=== PATIENT | female | born 1975 | race African-American/Black ===

== ENCOUNTER 2017-04-23 12:48 | Observation (INO) | payer OTHER, SELFPAY ==
[2017-04-23 13:53] LABS: Hematocrit 41.7 % (36.0-47.0); Mean Platelet Volume 8.3 fL (7.4-10.4); Red Blood Cell (RBC) Count 4.14 mill/uL (4.20-5.40); White Blood Cell (WBC) Count 9.8 thou/uL (4.8-10.8)
[2017-04-23 13:58] LABS: Prothrombin Time 19.5 SEC (12.0-14.7)
[2017-04-23 14:11] LABS: Anion Gap 11 mmol/L (10-20); BUN (Urea Nitrogen) 12 mg/dL (7.0-18.7); Calc. Creatinine Clearance 0 mL/min (70-130); Calcium 9.8 mg/dL (7.8-10.44); Carbon Dioxide 23 mmol/L (22-29); Chloride 110 mmol/L (98-107); Estimated GFR-MDRD 46; Magnesium 2.3 mg/dL (1.6-2.6)
[2017-04-23 14:12] LABS: Macrocytosis SLIGHT = 6-15 cells (100X) (0-5/hpf); Neutrophil 25 % (42-75); Reactive Lymphocytes 15 % (0-10); Schistocytes SLIGHT = 2-5 cells (100X) (0-1/hpf); Target Cells SLIGHT = 2-5 cells (100X) (0-1/hpf); Tear Drops SLIGHT = 2-5 cells (100X) (0-1/hpf)
[2017-04-23 14:17] LABS: Troponin I Less than 0.010 ng/mL (< 0.028)
--- NOTE | 2017-04-23 14:29 | RAD ---
CHEST ONE VIEW: History: Dyspnea. Comparison: 01-04-17 FINDINGS: Cardiac silhouette and pulmonary vasculature are unremarkable. Mediastinum is midline. Linear atelec tasis at the left base is stable. There is no confluent airspace consolidation or evidence of pneumo thorax. condenser operator leads overlie the chest. IMPRESSION: No active cardiopulmonary abnormalities are demonstrated. POS: [facility]
--- NOTE | 2017-04-23 15:22 | ULT ---
BILATERAL LOWER EXTREMITY VENOUS ULTRASOUND WITH DOPPLER: Date: 04/23/17 COMPARISON: 08/08/15. HISTORY: PREVIOUS DVT. TECHNIQUE: Pedraza scale, color flow, Doppler imaging, and spectral waveform analysis performed of the left and ri ght lower extremity deep venous system. FINDINGS: RIGHT LOWER EXTREMITY: There is compressibility, presence of flow, and augmentation in the common femoral vein. There is fl ow in the greater saphenous and profunda vein. There is lack of complete compressibility and complet e flow in the mid femoral vein. There is also partial compressibility in the distal femoral vein. Th e popliteal vein compresses completely and there is flow. There is flow in the posterior tibial vein . LEFT LOWER EXTREMITY: There is compressibility, presence of flow, and augmentation in the common femoral vein. There is fl ow in the greater saphenous vein and profunda vein. There is partial compressibility with some flow in the mid femoral vein and distal femoral vein. Popliteal vein compresses. There is flow. There is flow in the posterior tibial vein. IMPRESSION: Partial thrombus in the left and right lower extremity femoral veins (deep venous system). POS: [facility]
--- NOTE | 2017-04-23 15:25 | CT ---
CT PULMONARY ANGIOGRAM WITH IV CONTRAST AND 3D POSTPROCESSING: Date: 04/23/17 HISTORY: Shortness of breath, bilateral leg swelling, orthopnea, dyspnea on exertion, history of deep venous thrombosis bilaterally that occurred last year. FINDINGS: Comparison made with exam of 01/04/17. There is good contrast opacification of the pulmonary arterial vasculature without filling defects t o suggest pulmonary embolism. The thoracic aorta is well opacified without aneurysm or dissection. N o pleural or pericardial effusions are seen. There is subsegmental atelectatic change versus scarrin g in the lingula. This was also seen on the previous study. No pneumothoraces, focal areas of consol idation, or lung masses are identified. No acute osseous abnormalities are noted. Thymic remnant is again not seen. IMPRESSION: No CT evidence of pulmonary embolism. POS: [facility]
[2017-04-23] MEDS ORDERED: Warfarin Sodium 10 MG TAB PO SCH (15:45)
[2017-04-23] MEDS ORDERED: ISOVUE-370 76%-LOCM 1 ML ONE (16:29)
--- NOTE | 2017-04-23 16:48 | HP ---
DATE OF ADMISSION: 04/23/2017 PRIMARY CARE PHYSICIAN: [facility], Dr. Osorio. CHIEF COMPLAINT: Bilateral lower extremity swelling with exertional shortness of breath of 2 weeks' duration. HISTORY OF PRESENT ILLNESS: Patient is a 42-year-old female with chronic venous thromboembolism pre sented to the emergency room with above complaints. The patient was admitted in July of this year with DVT. She was started on anticoagulation and w as discharged home. She does not know why she gets DVT. She had hypercoagulable state in the past that has been negative. She was off anticoagulation in January and February. Two weeks ago, the patient was evaluated by her PCP for worsening bilateral lower extremity swelling . She was started on anticoagulation with warfarin 5 mg daily. Tomorrow, she was supposed to see a PCP for INR check. Over the last two weeks, patient has worsening swelling of bilateral lower extremities along with sh ortness of breath mainly on exertion. She denies any chest pain, palpitations, lightheadedness, diz ziness or syncope. Due to degenerative joint disease and bilateral lower extremity swelling, hernesto lucas has not been ambulating much. In the emergency room, she underwent venous Doppler that was consis tent with partial thrombus in the left and right lower extremity femoral veins. PAST MEDICAL HISTORY: 1. History of venous thromboembolism. 2. Chronic anemia. 3. Degenerative joint disease. PAST SURGICAL HISTORY: 1. Tubal ligation. 2. Splenectomy. 3. Multiple orthopedic surgeries including knee, ankle and left arm. ALLERGIES: No known drug allergies. CURRENT HOME MEDICATION: Warfarin 5 mg daily. SOCIAL HISTORY: She denies any smoking, alcohol or drug use. Currently lives at home with family. FAMILY HISTORY: Negative for hypercoagulable state or premature coronary artery disease. REVIEW OF SYSTEMS: The following complete review of systems was negative, unless otherwise mentione d in the HPI or below: Constitutional: Weight loss or gain, ability to conduct usual activities. Skin: Rash, itching. Eyes: Double vision, pain. ENT/Mouth: Nose bleeding, neck stiffness, pain, tenderness. Cardiovascular: Palpitations, dyspnea on exertion, orthopnea. Respiratory: Shortness of breath, wheezing, cough, hemoptysis, fever or night sweats. Gastrointestinal: Poor appetite, abdominal pain, heartburn, nausea, vomiting, constipation, or diar bertha. Genitourinary: Urgency, frequency, dysuria, nocturia. Musculoskeletal: Pain, swelling. Neurologic/Psychiatric: Anxiety, depression. Allergy/Immunologic: Skin rash, bleeding tendency. PHYSICAL EXAMINATION: VITAL SIGNS: Temperature 98.1 with respiration of 16, pulse rate of 93 with blood pressure of 127/8 6. GENERAL: A 42-year-old female in no significant respiratory distress, saturating 96% on room air. HEENT: Head; atraumatic, normocephalic. Sclerae anicteric. Moist mucous membranes. No oral lesio n. NECK: Supple, no JVD appreciated. No carotid bruit. LUNGS: Clear to auscultation bilaterally. No wheezing, rales or rhonchi. HEART: S1 and S2 present. Regular rate and rhythm. No murmur, rubs, or gallops appreciated. No p arasternal heaves or pulsation. ABDOMEN: Soft, nontender, bowel sounds present. EXTREMITIES: 2+ edema in bilateral lower extremities with mild calf tenderness on palpation. There was no erythema noted. NEUROLOGIC: Grossly nonfocal, moves all four extremities. PSYCHIATRY: Alert, awake, oriented x3. SKIN: Warm and dry. LYMPH NODES: No palpable lymph nodes in the neck and groin. LABORATORY DATA AND IMAGIN. CBC showed WBC 9.8 with hemoglobin 13, hematocrit 41.7, and platelet 275. 2. INR of 1.6. D-dimer was 0.82. 3. BNP was 11.7. 4. Troponin is negative. 5. BMP showed sodium 140, potassium 4, chloride 110, bicarbonate 23, BUN of 12, creatinine 1.51. C reatinine 4 months ago was 1.24. In July, it was 0.81. 6. CT angiogram of the chest by my review was negative for pulmonary embolism. There was no edema or infiltrate. Chest x-ray by my review was negative for infiltrate or edema. Bilateral lower extr emity Doppler as discussed above. 7. EKG by my review showed sinus rhythm with no significant ST-T wave changes. IMPRESSION AND PLAN: 1. Bilateral lower extremity deep venous thrombosis. The patient was started on anticoagulation 2 weeks ago at 5 mg warfarin daily. We will increase dose to 10 mg daily for now. We will educate he r on Coumadin diet. Pulmonary embolism has been ruled out. Thrombosis profile in the past has been negative. 2. Exertional shortness of breath of unclear etiology. The patient will benefit from a stress test as outpatient. 3. Acute kidney injury. The patient denies any nonsteroidal anti-inflammatory drug use. We will g ently hydrate her, since she received contrast bolus for the chest CT. We will repeat base met in a .m. 4. Degenerative joint disease. 5. Subtherapeutic INR. 6. Macrocytosis. 7. Plan of care was discussed with the patient. She stated understanding.
[2017-04-23] MEDS ORDERED: Eucerin (Mineral Oil/Petrolatum,White) 30 gm Jar TOP PRN (16:55)
[2017-04-23] MEDS ORDERED: Ondansetron HCl/PF 4 MG/2 ML Vial IVP PRN (16:55)
[2017-04-23] MEDS ORDERED: traMADol HCl 50 MG TAB PO PRN (16:55)
[2017-04-23] MEDS ORDERED: Milk Of Magnesia 30 ML UDCUP PO PRN (16:55)
[2017-04-23] MEDS ORDERED: Acetaminophen 325 MG TAB PO PRN (16:55)
[2017-04-23] MEDS ORDERED: Senokot 8.6 MG TAB PO PRN (16:55)
[2017-04-23] MEDS ORDERED: Nitroglycerin 0.4 MG TAB (25 Tab Bottle) PO PRN (16:55)
[2017-04-23] MEDS ORDERED: Ondansetron ODT 4 MG TAB PO PRN (16:55)
[2017-04-23] MEDS ORDERED: Polyethylene Glycol 3350 17 GM Packet PO PRN (16:55)
[2017-04-23] MEDS: Sodium Chloride 0.9% 1,000 ML IV SCH (17:15)
[2017-04-23 17:27] VITALS: BMI 34.2
[2017-04-23] MEDS: HYDROcodone/Acetaminophen 5/325 mg Tablet PO PRN (19:16)
[2017-04-24] MEDS: HYDROcodone/Acetaminophen 5/325 mg Tablet PO PRN ×2 (01:10→08:13)
[2017-04-24 04:54] LABS: Hematocrit 37.6 % (36.0-47.0)
[2017-04-24 05:09] LABS: Prothrombin Time 24.7 SEC (12.0-14.7)
[2017-04-24 05:19] LABS: Anion Gap 11 mmol/L (10-20); BUN (Urea Nitrogen) 12 mg/dL (7.0-18.7); BUN/Creatinine Ratio 11.01; Calc. Creatinine Clearance 92 mL/min (70-130); Calcium 8.8 mg/dL (7.8-10.44); Carbon Dioxide 19 mmol/L (22-29); Chloride 110 mmol/L (98-107); Estimated GFR-MDRD 67; Magnesium 1.9 mg/dL (1.6-2.6); Phosphorus 3.9 mg/dL (2.3-4.7)
[2017-04-24] MEDS: Sodium Chloride 0.9% 1,000 ML IV SCH (06:05)
[2017-04-24 08:02] VITALS: BP 103/69
[2017-04-24 08:20] VITALS: TEMP 98.7
--- NOTE | 2017-04-24 08:51 | DIS ---
TRANSFER OF CARE NOTE PRIMARY CARE PROVIDER: [facility] Jeff Reyna DATE OF ADMISSION: 04/23/2017 DATE OF DISCHARGE: 04/24/2017 DISCHARGE DISPOSITION: Home. FINAL DIAGNOSES: 1. Deep vein thrombosis, subtherapeutic INR. 2. Anemia, normocytic, normochromic. DISCHARGE MEDICATIONS: Coumadin 7.5 mg p.o. daily at 1700 hours, ferrous sulfate 325 mg p.o. b.i.d. , Protonix 40 mg a day. ALLERGIES: None. PENDING AT THE TIME OF DISCHARGE: Nothing. CODE STATUS: Full. HOSPITAL COURSE: The patient presented with leg swelling. She has chronic venous thrombosis. She had been on Coumadin for months. She was taken off in February. Two weeks ago, she was started back on 5 mg a day for deep vein thrombosis. When she presented in the emergency room, her PT/INR 19.5, 1.6. She was given an additional dose of Coumadin. This morning her PT/INR is 24.7/2.1. A CT adri o of the chest was done which revealed no evidence of pulmonary embolism. The patient is asymptomat ic this morning. Vital signs are within normal limits. Cardiorespiratory exam is normal. I have discussed discharge on increased dose of Coumadin. She is being discharged on Coumadin 7.5 a day instead of 5. She has been instructed to go to [facility] in 3 days for followup PT/INR. Nicolle sotelo is agreeable with that. CONSULTATIONS: No consultations. PROCEDURES: No procedures.
[2017-04-24] MEDS ORDERED: Warfarin Sodium 10 MG TAB PO SCH (17:00)
== END 2017-04-24 11:21 | disposition home or self-care (01) ==
LOC: ERS 12:48 → 2SW 15:45
PROVIDERS: ADMIT Internal Medicine; ATTEND Internal Medicine
DX: I82.503 Chronic embolism and thrombosis of unspecified deep veins of lower extremity, bilateral (principal); D64.9 Anemia, unspecified; M19.90 Unspecified osteoarthritis, unspecified site; N17.9 Acute kidney failure, unspecified; D75.89 Other specified diseases of blood and blood-forming organs; R06.02 Shortness of breath; Z79.01 Long term (current) use of anticoagulants; Z79.899 Other long term (current) drug therapy; Z98.51 Tubal ligation status; Z90.81 Acquired absence of spleen; Z98.890 Other specified postprocedural states
CPT/HCPCS: 36415; 71010; 71275; 80048; 80069; 82553; 82607; 82746; 83735; 83880; 84443; 84484; 85014; 85018; 85025; 85049; 85379; 85610; 93005; 93970; 94760; 96360; 96361; G0378

== ENCOUNTER 2017-08-11 11:44 | Outpatient (CLI) | payer SELFPAY | END 2017-08-11 11:45 | disposition home or self-care (01) | LOC: BICRAD 11:44 | PROVIDERS: ATTEND Internal Medicine | DX: Z02.71 Encounter for disability determination (principal); B20 Human immunodeficiency virus [HIV] disease; I82.409 Acute embolism and thrombosis of unspecified deep veins of unspecified lower extremity; I50.9 Heart failure, unspecified; G62.9 Polyneuropathy, unspecified; M47.896 Other spondylosis, lumbar region; M17.12 Unilateral primary osteoarthritis, left knee | CPT/HCPCS: 72100 ==

== ENCOUNTER 2018-01-09 15:44 | Inpatient (IN) | payer SELFPAY ==
[~2018-01-09 15:44] MED LIST: ISOVUE-370 76%-LOCM 1 ML ONE
[2018-01-09 17:07] LABS: Hemoglobin 13.3 g/dL (12.0-16.0); Mean Corpuscular HGB CONC 31.8 g/dL (32.0-36.0); Mean Corpuscular Hemoglobin 30.2 pg (27.0-31.0); Mean Corpuscular Volume 94.8 fL (78.0-98.0); Mean Platelet Volume 8.9 fL (7.4-10.4); Platelet Count 206 thou/uL (130-400); Red Blood Cell (RBC) Count 4.41 mill/uL (4.20-5.40); White Blood Cell (WBC) Count 13.1 thou/uL (4.8-10.8)
[2018-01-09 17:11] LABS: BHCG - Serum Negative (NEGATIVE); Pregs Control Background? CLEAR/WHITE (CLR/WHITE); Pregs Control Bar Appear? YES (CONTROL BAR)
[2018-01-09 17:12] LABS: PTT 24.7 SEC (22.9-36.1); Prothrombin Time 13.4 SEC (12.0-14.7)
[2018-01-09 17:13] LABS: D-Dimer Test 1.88 *mcg/mL (0.27-0.43)
[2018-01-09 17:30] LABS: Acanthocytes SLIGHT = 1-5 cells (100X) (None Seen); Anisocytosis SLIGHT = 6-15 cells (100X) (0-5/hpf); Lymphocytes 83 % (21-51); MDiff Complete? YES; Monocytes 4 % (0-10); Neutrophil 13 % (42-75); PLT Morphology Comment Appears Adequate
[2018-01-09 17:31] LABS: ALT (SGPT) 18 U/L (8-55); AST (SGOT) 16 U/L (5-34); Albumin 4.2 g/dL (3.5-5.0); Alkaline Phosphatase 79 U/L (40-150); Anion Gap 13 mmol/L (10-20); BUN (Urea Nitrogen) 13 mg/dL (7.0-18.7); Bilirubin, Total 0.7 mg/dL (0.2-1.2); Calc. Creatinine Clearance 0 mL/min (70-130); Calcium 9.7 mg/dL (7.8-10.44); Carbon Dioxide 26 mmol/L (22-29); Chloride 106 mmol/L (98-107); Estimated GFR-MDRD 59; Globulin 3.9 g/dL (2.4-3.5); Glucose 94 mg/dL (70-105); Protein, Total 8.1 g/dL (6.0-8.3); Sodium 141 mmol/L (136-145)
--- NOTE | 2018-01-09 17:42 | ULT ---
RIGHT UPPER EXTREMITY VENOUS ULTRASOUND 01/09/18 HISTORY: Right upper extremity edema. TECHNIQUE: Multiplanar hernandez scale and color doppler images were obtained in a right upper extremity venous ultra sound. FINDINGS: The right internal jugular vein demonstrates normal flow and compression without evidence of thrombus . The right subclavian vein demonstrates normal flow without evidence of thrombus. There is visible t hrombus within the right brachial vein extending from the antecubital fossa upward more proximally. T hrombus is also seen in the right basilic vein which is enlarged. The cephalic vein is patent. The ve nous structures distal to the right elbow are unremarkable. IMPRESSION: 1. DVT seen in the brachial vein. 2. There is also thrombus within the basilic vein. POS: [facility]
[2018-01-09] MEDS ORDERED: Enoxaparin Sodium 100 MG/ML SYRINGE ONE (18:25)
[2018-01-09] MEDS ORDERED: HYDROcodone/Acetaminophen 10/325 mg Tablet ONE (18:58)
--- NOTE | 2018-01-09 19:02 | CT ---
CTA THORAX WITH CONTRAST: Date: 01/09/18 Time: 5:56 p.m. (Computed Tomographic Angiography, chest(noncoronary) with contrast material, and image postprocessin g) (PE protocol) HISTORY: 42-year-old female with right upper extremity presents with tachycardia and elevated D-dimer. Dr. Lim verbally reported the positive finding of pulmonary embolism to Dr. Mcclure of the Emergency D epartment at 6:16 p.m. on 01/09/18. TECHNIQUE: IV injection of iodinated contrast: 70 mL Isovue 370. Scan acquisition timing attempted to coincide with iodinated contrast bolus reaching maximal density in pulmonary arteries. 3D MIP reconstructions. FINDINGS: There is clot at the periphery of the right main pulmonary artery, and in right upper lobe pulmonary artery, one of the proximal branches of the right middle lobe pulmonary artery, right lower lobe pulm onary artery, and their more peripheral branches. No pulmonary thromboembolism is identified in the p ulmonic trunk, or on the left side. No pleural effusion or pneumothorax. No consolidation or janusz pu lmonary edema. No pneumothorax. IMPRESSION: Positive for right sided pulmonary thromboembolism. Code CR jn[] POS: [facility]
[2018-01-09] MEDS ORDERED: Ondansetron HCl/PF 4 MG/2 ML Vial IVP PRN (19:57)
[2018-01-09] MEDS ORDERED: Warfarin Sodium 7.5 MG TAB PO SCH (20:15)
[2018-01-09] MEDS ORDERED: WARFARIN PO PRN (20:49)
[2018-01-09 21:11] VITALS: BMI 34.9
[2018-01-10] MEDS: Acetaminophen 325 MG TAB PO PRN ×2 (01:16→06:15)
[2018-01-10 05:34] LABS: Prothrombin Time 13.4 SEC (12.0-14.7)
[2018-01-10 05:34] LABS: Anion Gap 14 mmol/L (10-20); BUN (Urea Nitrogen) 14 mg/dL (7.0-18.7); Calc. Creatinine Clearance 94 mL/min (70-130); Calcium 9.7 mg/dL (7.8-10.44); Carbon Dioxide 23 mmol/L (22-29); Chloride 108 mmol/L (98-107); Estimated GFR-MDRD 67; Glucose 106 mg/dL (70-105); Potassium 4.1 mmol/L (3.5-5.1); Sodium 141 mmol/L (136-145)
[2018-01-10] MEDS: Enoxaparin Sodium 100 MG/ML SYRINGE SC SCH ×2 (05:59→17:21)
[2018-01-10] MEDS ORDERED: Enoxaparin Sodium 80 MG/0.8 ML SYRINGE SC SCH (06:00)
[2018-01-10] MEDS ORDERED: Enoxaparin Sodium 100 MG/ML SYRINGE SC SCH (06:00)
[2018-01-10 06:25] LABS: Acanthocytes SLIGHT = 1-5 cells (100X) (None Seen); Band 1 % (5-11); Hemoglobin 13.2 g/dL (12.0-16.0); Lymphocytes 52 % (21-51); MDiff Complete? YES; Mean Corpuscular Hemoglobin 31.2 pg (27.0-31.0); Mean Corpuscular Volume 94.5 fL (78.0-98.0); Mean Platelet Volume 9.3 fL (7.4-10.4); Monocytes 5 % (0-10); Neutrophil 41 % (42-75); Platelet Count 191 thou/uL (130-400); RBC Distribution Width 15.1 % (11.5-14.5); Reactive Lymphocytes 1 % (0-10); Red Blood Cell (RBC) Count 4.22 mill/uL (4.20-5.40)
[2018-01-10] MEDS ORDERED: hydrALAZINE 20 MG/ML VIAL SLOW IVP PRN (08:28)
[2018-01-10] MEDS ORDERED: Diabetic Tussin 200 MG/10 ML UDCUP PO PRN (08:28)
[2018-01-10] MEDS ORDERED: Mag-Al 1200 mg/1200 mg/30 ML UDCUP PO PRN (08:28)
[2018-01-10] MEDS ORDERED: Benzonatate 100 MG CAP PO PRN (08:28)
[2018-01-10] MEDS ORDERED: Senokot 8.6 MG TAB PO PRN (08:28)
[2018-01-10] MEDS ORDERED: Nitroglycerin 0.4 MG TAB (25 Tab Bottle) SL PRN (08:28)
[2018-01-10] MEDS ORDERED: cloNIDine 0.1 MG TAB PO PRN (08:28)
[2018-01-10] MEDS ORDERED: Calcium Carbonate 500 MG ChewTAB PO PRN (08:28)
[2018-01-10] MEDS ORDERED: Lorazepam 1 MG TAB PO PRN (08:28)
[2018-01-10] MEDS ORDERED: Loratadine 10 MG TAB PO PRN (08:28)
[2018-01-10] MEDS ORDERED: Bisacodyl 5 MG TAB PO PRN (08:28)
[2018-01-10] MEDS: traMADol HCl 50 MG TAB PO PRN ×3 (09:30→21:00)
[2018-01-10] MEDS: Ferrous Sulfate 325 MG TAB PO SCH ×2 (09:30→17:22)
--- NOTE | 2018-01-10 12:20 | HP ---
PRIMARY CARE PHYSICIAN: Lorrie Crane M.D CODE STATUS: FULL CODE. TIME OF EVALUATION: 7:30 p.m. HISTORY OF PRESENT ILLNESS: This is a 42-year-old female patient with past medical history of multiple episodes of VTE including DVTs in the past. The patient was on chronic anticoagulation and she decided to stop Coumadin a few days ago. The patient came to the hospital after having redness, tenderness, swelling of the right upper extremity, associated with decreased range of motion due to pain. The patient received ultrasound of that arm and a DVT was found in the brachial vein vein, CT chest was done for the same reason and she was found to have right-sided pulmonary thromboembolism. For that reason, she was admitted to the hospital, and she has been started on Lovenox, she is willing to be compliant with Coumadin at this point that has been started tonight. REVIEW OF SYSTEMS: Constitutional: No fever, no chills, generalized weakness. Respiratory: No cough, no sputum production, no shortness of breath. Cardiovascular: No chest pain or palpitations. The patient has chronic shortness of breath. Gastrointestinal: No Nausea, no vomiting, no diarrhea, no abdominal pain. BUCKLE COVERER: No dizziness, headache, feeling lightheaded. Genitourinary: No burning on urination. Extremities: The patient has right upper extremity pain, swelling, and redness. All other systems were reviewed and were negative except for the findings mentioned above. PAST MEDICAL HISTORY: The patient has a history of multiple DVTs, bilateral lower extremities. PAST SURGICAL HISTORY: Bilateral leg ____ on both knees. . PSYCHIATRIC HISTORY: No previous psychiatric history. SOCIAL HISTORY: No alcohol, no drugs, no smoking history. FAMILY HISTORY: Reviewed and noncontributory for current presentation. No history of thromboembolism in the family. ALLERGIES: No known drug allergies. Reported MEDICATIONS: Warfarin 7.5 mg daily, gabapentin 100 mg 3 times daily. PHYSICAL EXAMINATION: VITAL SIGNS: On presentation, the patient had a blood pressure of 118/84 with a heart rate of 116, respiratory rate 16, temperature 98.9, pain 10/10, oxygen saturation 96% on room air. GENERAL: The patient is alert, oriented, in no acute distress. HEENT: Eyes, normal conjunctivae. Moist oral mucosa, anicteric. NECK: No JVD. RESPIRATORY: Bilateral air entry. No rales, no wheezing. Symmetric expansion. CARDIOVASCULAR: Normal rate, regular rhythm, no murmurs, no gallop, no edema. ABDOMEN: Soft, normal bowel sounds. MUSCULOSKELETAL: Baseline range of motion and strength. No tenderness. SKIN: Warm and intact. No pallor, no rash, no redness. NEUROLOGIC: Baseline sensorium. No evidence of any new focal weakness. Baseline speech. Cranial nerves sensory intact. PSYCHIATRIC: The patient is in good mood. No anxiety, oriented, optimal judgment. LABORATORY DATA: White count 13.1, hemoglobin 13, MCV 94, platelet count 206. Coagulation: PT 13, INR 1. D-dimer 1.88. Chemistry was reviewed. The patient has sodium of 144, potassium 4, chloride 106, carbon dioxide 26, anion gap 13, creatinine 1.22. GFR 59, glucose 94, calcium is 9.7. LFTs are normal. RADIOLOGY REPORT: CT angio was done looking for PE. The patient is positive for right-sided pulmonary thromboembolism and vascular ultrasound was done to the right upper extremity was reviewed. The patient has DVT seen in brachial vein. There was thrombus within the basilic vein. ASSESSMENT AND PLAN: 1. Right side pulmonary embolism. The patient has a previous history of multiple VTEs, was noncompliant with medication, stopped taking Coumadin, we will restart the Coumadin, bridge wit Lovenox, INR was only 1.0, pharmacy to dose Coumadin. this problem place pt at high risk for complications. 2. Right upper arm VTE. The patient has been started on anticoagulation. 3. DVT prophylaxis. The patient is on full anticoagulation. [facility]
--- NOTE | 2018-01-10 13:13 | PDOC.PN ---
- Subjective Encounter Start Date: 01/10/18 Encounter Start Time: 13:11 Subjective: c/o RUE pain and swelling & right sided chest pain - Objective Resuscitation Status: Resuscitation Status FULL:Full Resuscitation MAR Reviewed: Yes Vital Signs & Weight: Vital Signs (12 hours) Temp Pulse Resp BP Pulse Ox 01/10/18 12:17 98.4 F 97 17 117/80 98 01/10/18 09:26 98.4 F 99 18 125/81 97 01/10/18 03:29 98.6 F 103 H 16 118/70 94 L Weight Weight 191 lb 6.4 oz I&O: 01/09/18 01/10/18 01/11/18 06:59 06:59 06:59 Intake Total 850 Output Total 250 Balance 600 Result Diagrams: 01/10/18 04:27 01/10/18 04:26 Additional Labs: labs reviewed Radiology Reviewed by me: Yes (CTA-multiple R sided PE,RUE DVT) Phys Exam - Physical Examination Constitutional: NAD HEENT: PERRLA, moist MMs, sclera anicteric, oral pharynx no lesions Neck: no nodes, no JVD, supple, full ROM Respiratory: no wheezing, no rales, no rhonchi, clear to auscultation bilateral Cardiovascular: RRR, no significant murmur, no rub Gastrointestinal: soft, non-tender, no distention, positive bowel sounds Musculoskeletal: pulses present, edema present (RUE) Neurological: non-focal, normal sensation, moves all 4 limbs Psychiatric: normal affect, A&O x 3 Skin: no rash Dx/Plan (1) Pulmonary emboli Code(s): I26.99 - OTHER PULMONARY EMBOLISM WITHOUT ACUTE COR PULMONALE Status : Acute (2) DVT of upper extremity (deep vein thrombosis) Code(s): I82.629 - ACUTE EMBOLISM AND THROMBOSIS OF DEEP VN UNSP UP EXTREM Status: Acute (3) ROSA MARIA (acute kidney injury) Code(s): N17.9 - ACUTE KIDNEY FAILURE, UNSPECIFIED Status: Acute (4) Non-compliance Code(s): Z91.19 - PATIENT'S NONCOMPLIANCE W OTH MEDICAL TREATMENT AND REGIMEN Status: Acute (5) Anemia, normocytic normochromic Code(s): D64.9 - ANEMIA, UNSPECIFIED Status: Chronic - Plan DVT proph w/SCDs cont BID lovenox w coumadin. -: increase dose to 7.5 /d.daily INR. -: pt educated extensively about the need for lifelong anticoagulation -: hypercoag work up reviewed from last year-all negative -: Hemodynamically stable but will consult PCCM d/t svereity of PE * . am labs. Review of Systems - Review of Systems Constitutional: weakness, malaise ENT: negative: Ear Pain, Ear Discharge, Nose Pain, Nose Discharge, Nose Congestion, Mouth Pain, Mouth Swelling, Throat Pain, Throat Swelling, Other Respiratory: SOB with Excertion. negative: Cough, Dry, Shortness of Breath, Hemoptysis, Pleuritic Pain, Sputum, Wheezing Cardiovascular: negative: chest pain, palpitations, orthopnea, paroxysmal nocturnal dyspnea, edema, light headedness, other Gastrointestinal: negative: Nausea, Vomiting, Abdominal Pain, Diarrhea, Constipation, Melena, Hematochezia, Other Genitourinary: negative: Dysuria, Frequency, Incontinence, Hematuria, Retention , Other Musculoskeletal: negative: Neck Pain, Shoulder Pain, Arm Pain, Back Pain, Hand Pain, Leg Pain, Foot Pain, Other Neurological: negative: Weakness, Numbness, Incoordination, Change in Speech, Confusion, Seizures, Other - Medications/Allergies Allergies/Adverse Reactions: Allergies Allergy/AdvReac Type Severity Reaction Status Date / Time No Known Drug Allergies Allergy Verified 01/09/18 21:08 Medications: Current Medications Acetaminophen (Tylenol) 650 mg PO Q4H PRN PRN Reason: Headache/Fever or Pain Last Admin: 01/10/18 06:15 Dose: 650 mg Al Hydroxide/Mg Hydroxide (Maalox) 15 ml PO Q4H PRN PRN Reason: Heartburn or Indigestion Benzonatate (Tessalon) 100 mg PO Q4H PRN PRN Reason: Cough Bisacodyl (Dulcolax) 10 mg PO DAILYPRN PRN PRN Reason: Constipation Calcium Carbonate (Tums) 1,000 mg PO Q4H PRN PRN Reason: Heartburn or Indigestion Clonidine (Catapres) 0.1 mg PO Q4H PRN PRN Reason: SBP>160 Enoxaparin Sodium (Lovenox) 90 mg SC 0600,1800 BAKARI Last Admin: 01/10/18 05:59 Dose: 90 mg Ferrous Sulfate (Feosol) 325 mg PO BID-[facility] Last Admin: 01/10/18 09:30 Dose: 325 mg Guaifenesin (Robitussin Sf) 200 mg PO Q4H PRN PRN Reason: Cough Hydralazine HCl (Apresoline) 10 mg SLOW IVP Q4H PRN PRN Reason: Systolic BP > 180 Loratadine (Claritin) 10 mg PO DAILYPRN PRN PRN Reason: Sinus Symptoms Lorazepam (Ativan) 1 mg PO Q4H PRN PRN Reason: Anxiety/Agitation Miscellaneous Medication (Pharmacy To Dose) 1 each PO PRN PRN PRN Reason: PE Nitroglycerin (Nitrostat) 0.4 mg SL Q5MIN PRN PRN Reason: Chest Pain Ondansetron HCl (Zofran) 4 mg IVP Q6H PRN PRN Reason: Nausea/Vomiting Pantoprazole Sodium (Protonix) 40 mg PO DAILY [facility] Last Admin: 01/10/18 09:30 Dose: 40 mg Senna (Senokot) 2 tab PO HSPRN PRN PRN Reason: Constipation Sodium Chloride (Flush - Normal Saline) 10 ml IVF Q12HR [facility] Sodium Chloride (Flush - Normal Saline) 10 ml IVF PRN PRN PRN Reason: Saline Flush Tramadol HCl (Ultram) 50 mg PO Q4H PRN PRN Reason: Moderate Pain (4-6) Last Admin: 01/10/18 09:30 Dose: 50 mg Warfarin Sodium (Coumadin) 7.5 mg PO 1700 [facility]
[2018-01-10] MEDS ORDERED: Warfarin Sodium 5 MG TAB PO SCH (17:00)
[2018-01-10] MEDS: Warfarin Sodium 7.5 MG TAB PO SCH (17:22)
--- NOTE | 2018-01-11 01:53 | CON ---
DATE OF CONSULTATION: 01/10/2018 SERVICE: Pulmonary Medicine. REASON FOR CONSULTATION: Pulmonary embolism. HISTORY OF PRESENT ILLNESS: The patient is a 42-year-old -[place] female with past medical history significant for DVT. She was told at one point that she should be on lifelong anticoagulation, but it is not clear to me from review of the records why that was the case. Either way, she was supposed to be on Coumadin, but discontinued this medication roughly 2 months ago. She ran out of the medication. She knew she was supposed to get refilled, but ultimately never did. She stopped going into the [facility]. On the day of presentation, she had an abrupt onset of some pleuritic redness, tenderness and swelling of the right upper extremity. Ultrasound there demonstrated DVT. A CT scan was done, but it is not clear to me that she had any significant respiratory symptoms. This demonstrated a pulmonary embolism. She was started on full dose Lovenox, and is being transitioned on to Coumadin. She denies any current fevers, chills, nausea or vomiting. She is not having any hemoptysis, really shortness of breath. She remains on room air and she is not terribly tachycardic. PAST MEDICAL HISTORY: 1. Deep vein thrombosis x1 episode, status post 6 months of anticoagulation. 2. Right upper extremity veno-thromboembolic disease. 3. Pulmonary embolism. 4. Human immunodeficiency virus based on previous laboratories. PAST SURGICAL HISTORY: Knee surgeries, bilateral. SOCIAL HISTORY: Negative for alcohol, tobacco or illicit drug use currently. She has no exposure to chemicals, dust, asbestos, or tuberculosis. FAMILY HISTORY: Noncontributory. ALLERGIES: No known drug allergies. MEDICATIONS: List of inpatient medications were reviewed. No specific updates were made. REVIEW OF SYSTEMS: General, head, ears, eyes, nose, throat, cardiovascular, respiratory, GI, , musculoskeletal, neurologic and skin is negative except as mentioned in the HPI. PHYSICAL EXAMINATION: VITAL SIGNS: Afebrile, pulse 97, blood pressure 113/80, respirations 16, saturation 96% on room air. GENERAL: The patient is awake, alert, no apparent distress. LUNGS: Decent air entry. There is no prolonged expiratory phase, wheezing, rhonchi, or crackles present. HEART: Normal rate and regular. ABDOMEN: Soft, nontender, nondistended. Bowel sounds are positive. MUSCULOSKELETAL: No cyanosis or clubbing. No pitting in the bilateral lower extremities. NEUROLOGIC: Grossly nonfocal. LABORATORY DATA: WBC 11.0, hemoglobin 13.2, platelets 191,000. INR 1.0. Creatinine is 1.09 and down trending. Basic metabolic profile is otherwise unremarkable. IMAGIN. CTA of the chest demonstrates pulmonary emboli, which appeared to be subacute. She does not have any significant evidence of right ventricular strain or heart failure. There is no reflux of contrast into the inferior vena cava. 2. Ultrasound of the right upper extremity demonstrates DVT in the brachial vein as well as thrombus in the basilic vein. ASSESSMENT: 1. Deep vein thrombosis. 2. Pulmonary embolism. 3. Human immunodeficiency virus. 4. Obesity. DISCUSSION AND PLAN: The patient is not currently on any medications for HIV. Her family is present in the room, so I did not broach the subject. That being said, I will get HIV viral load, and a CD4 count with tomorrow morning's laboratories. She previously had a prothrombin gene mutation, which was unremarkable. We will get a factor V Leiden, and an LEON in order to screen for other disease processes. Either way, she is going to be committed to lifelong anticoagulation. I stress the importance of this with her today at bedside in front of multiple family members. She understands at this point that if she elects to discontinue her anticoagulation, she will be at risk of sudden cardiac . Once these confirmation studies come back on the HIV status, we will ask the family to step outside, so that I can have a conversation with her. She will certainly need to follow up with ID in the outpatient setting. Pulmonary Critical Care will continue to follow along for the time being. 70 minutes have been devoted to this patient in various activities. I personally reviewed all imaging studies and laboratory data noted within this document. For fifty percent of this time, I was interacting with the patient at the bedside or coordinating care with the care team. For the remainder of the time I was immediately available to the patient in the hospital unit. BUCK
[2018-01-11] MEDS: traMADol HCl 50 MG TAB PO PRN ×2 (04:55→13:16)
[2018-01-11 05:08] LABS: INR-International Normal Ratio 1.4; Prothrombin Time 17.4 SEC (12.0-14.7)
[2018-01-11] MEDS: Enoxaparin Sodium 100 MG/ML SYRINGE SC SCH ×2 (05:16→20:38)
[2018-01-11 05:24] LABS: Anion Gap 10 mmol/L (10-20); BUN (Urea Nitrogen) 11 mg/dL (7.0-18.7); Calc. Creatinine Clearance 102 mL/min (70-130); Carbon Dioxide 23 mmol/L (22-29); Chloride 106 mmol/L (98-107); Estimated GFR-MDRD 73; Glucose 109 mg/dL (70-105); Sodium 135 mmol/L (136-145)
[2018-01-11] MEDS: Ferrous Sulfate 325 MG TAB PO SCH ×2 (08:59→16:50)
--- NOTE | 2018-01-11 14:28 | PDOC.PN ---
- Subjective Encounter Start Date: 01/11/18 Encounter Start Time: 14:27 -: old records requested/rev Subjective: still with exertional SOB,right arm pain and r chest pain - Objective Resuscitation Status: Resuscitation Status FULL:Full Resuscitation MAR Reviewed: Yes Vital Signs & Weight: Vital Signs (12 hours) Temp Pulse Resp BP Pulse Ox 01/11/18 12:53 98.2 F 86 15 103/65 96 01/11/18 08:53 98.7 F 87 16 121/81 96 01/11/18 03:00 98.3 F 95 16 122/76 97 Weight Weight 192 lb I&O: 01/10/18 01/11/18 01/12/18 06:59 06:59 06:59 Intake Total 850 1400 Output Total 250 535 Balance 600 865 Result Diagrams: 01/10/18 04:27 01/11/18 04:46 Additional Labs: Laboratory Tests 01/09/18 01/09/18 01/10/18 16:52 16:52 04:26 INR 1.0 Creatinine 1.22 H 1.09 01/10/18 01/11/18 01/11/18 04:27 04:46 04:46 INR 1.0 1.4 Creatinine 1.01 labs reviewed Phys Exam - Physical Examination Constitutional: NAD HEENT: PERRLA, moist MMs, sclera anicteric, oral pharynx no lesions Neck: no nodes, no JVD, supple, full ROM Respiratory: no wheezing, no rales, no rhonchi, clear to auscultation bilateral Cardiovascular: RRR, no significant murmur, no rub Gastrointestinal: soft, non-tender, no distention, positive bowel sounds Musculoskeletal: pulses present, edema present (rue) Neurological: non-focal, normal sensation, moves all 4 limbs Psychiatric: normal affect, A&O x 3 Skin: no rash Dx/Plan (1) Pulmonary emboli Code(s): I26.99 - OTHER PULMONARY EMBOLISM WITHOUT ACUTE COR PULMONALE Status : Acute (2) DVT of upper extremity (deep vein thrombosis) Code(s): I82.629 - ACUTE EMBOLISM AND THROMBOSIS OF DEEP VN UNSP UP EXTREM Status: Acute (3) ROSA MARIA (acute kidney injury) Code(s): N17.9 - ACUTE KIDNEY FAILURE, UNSPECIFIED Status: Acute (4) Non-compliance Code(s): Z91.19 - PATIENT'S NONCOMPLIANCE W OTH MEDICAL TREATMENT AND REGIMEN Status: Acute (5) Anemia, normocytic normochromic Code(s): D64.9 - ANEMIA, UNSPECIFIED Status: Chronic (6) HIV positive Code(s): Z21 - ASYMPTOMATIC HUMAN IMMUNODEFICIENCY VIRUS INFECTION STATUS Status: Chronic Comment: On old records from 2013 without any follow up - Plan PT/OT, out of bed/ambulate, DVT proph w/SCDs INR 1.4 today.cont lovenox BID w coumadin.monitor.clinically stable -: Recheck HIV status.coul not be discussed w pt as family in room -: appreciate PCCM help. -: cont home meds and supportive care. -: am labs * . Review of Systems - Review of Systems Constitutional: weakness, malaise. negative: fever, chills, sweats, other Respiratory: SOB with Excertion. negative: Cough, Dry, Shortness of Breath, Hemoptysis, Pleuritic Pain, Sputum, Wheezing Cardiovascular: negative: chest pain, palpitations, orthopnea, paroxysmal nocturnal dyspnea, edema, light headedness, other Gastrointestinal: negative: Nausea, Vomiting, Abdominal Pain, Diarrhea, Constipation, Melena, Hematochezia, Other Genitourinary: negative: Dysuria, Frequency, Incontinence, Hematuria, Retention , Other Musculoskeletal: Arm Pain (right). negative: Neck Pain, Shoulder Pain, Back Pain, Hand Pain, Leg Pain, Foot Pain, Other Neurological: negative: Weakness, Numbness, Incoordination, Change in Speech, Confusion, Seizures, Other - Medications/Allergies Allergies/Adverse Reactions: Allergies Allergy/AdvReac Type Severity Reaction Status Date / Time No Known Drug Allergies Allergy Verified 01/09/18 21:08 Medications: Current Medications Acetaminophen (Tylenol) 650 mg PO Q4H PRN PRN Reason: Headache/Fever or Pain Last Admin: 01/10/18 06:15 Dose: 650 mg Al Hydroxide/Mg Hydroxide (Maalox) 15 ml PO Q4H PRN PRN Reason: Heartburn or Indigestion Benzonatate (Tessalon) 100 mg PO Q4H PRN PRN Reason: Cough Bisacodyl (Dulcolax) 10 mg PO DAILYPRN PRN PRN Reason: Constipation Calcium Carbonate (Tums) 1,000 mg PO Q4H PRN PRN Reason: Heartburn or Indigestion Clonidine (Catapres) 0.1 mg PO Q4H PRN PRN Reason: SBP>160 Enoxaparin Sodium (Lovenox) 90 mg SC 0600,1800 [facility] Last Admin: 01/11/18 05:16 Dose: 90 mg Ferrous Sulfate (Feosol) 325 mg PO BID-WM [facility] Last Admin: 01/11/18 08:59 Dose: 325 mg Guaifenesin (Robitussin Sf) 200 mg PO Q4H PRN PRN Reason: Cough Hydralazine HCl (Apresoline) 10 mg SLOW IVP Q4H PRN PRN Reason: Systolic BP > 180 Loratadine (Claritin) 10 mg PO DAILYPRN PRN PRN Reason: Sinus Symptoms Lorazepam (Ativan) 1 mg PO Q4H PRN PRN Reason: Anxiety/Agitation Miscellaneous Medication (Pharmacy To Dose) 1 each PO PRN PRN PRN Reason: PE Nitroglycerin (Nitrostat) 0.4 mg SL Q5MIN PRN PRN Reason: Chest Pain Ondansetron HCl (Zofran) 4 mg IVP Q6H PRN PRN Reason: Nausea/Vomiting Pantoprazole Sodium (Protonix) 40 mg PO DAILY [facility] Last Admin: 01/11/18 08:59 Dose: 40 mg Senna (Senokot) 2 tab PO HSPRN PRN PRN Reason: Constipation Last Admin: 01/10/18 21:00 Dose: 2 tab Sodium Chloride (Flush - Normal Saline) 10 ml IVF Q12HR [facility] Last Admin: 01/11/18 13:17 Dose: 10 ml Sodium Chloride (Flush - Normal Saline) 10 ml IVF PRN PRN PRN Reason: Saline Flush Tramadol HCl (Ultram) 50 mg PO Q4H PRN PRN Reason: Moderate Pain (4-6) Last Admin: 01/11/18 13:16 Dose: 50 mg Warfarin Sodium (Coumadin) 7.5 mg PO 1700 [facility] Last Admin: 01/10/18 17:22 Dose: 7.5 mg
[2018-01-11] MEDS: Warfarin Sodium 7.5 MG TAB PO SCH (16:50)
--- NOTE | 2018-01-11 20:00 | PRG ---
DATE OF SERVICE: 01/11/2018 SERVICE: Pulmonary Medicine. INTERVAL HISTORY: The patient is doing fine from a respiratory standpoint. He is breathing comforta jeferson. There are no complaints of chest pain, nausea, vomiting, fevers or chills. Otherwise, she has returned to her usual state of health. I talked to her about whether or not she knew she had HIV. I nitially, she told me that she did not. Then, I relayed to her that we made a mistake of not telling her about this thing over 3 years ago. She then confessed that she did know about it and she sees Jojo Gould in the outpatient setting. She did not think that HIV status was relevant to her current pr esentation. As such, she intentionally withheld this information and withheld her HIV medications of f of her drug list. She indicates to me that she [facility], but when she comes into the hospital, she does not tell anybody about these things. I told her t hat this is perhaps dangerous. I explained to her that when somebody has HIV, it changes our differe ntial when somebody presents to the hospital. It certainly did not affect this presentation, other p resentations by withholding this type of information could be potentially devastating in life threate wendy. Furthermore, exposes some of her healthcare providers to increased risk. In the future, Chase sotelo made the request that she relayed this information to the healthcare providers that admitted to the hospital. OBJECTIVE: VITAL SIGNS: Afebrile, pulse 100, blood pressure 112/76, respirations 16, saturation 96% on room air . GENERAL: The patient is awake, alert, no apparent distress. LUNGS: Excellent air entry. There is no prolonged expiratory phase, wheezing, rhonchi, or crackles present. HEART: Normal rate, regular. ABDOMEN: Soft, nontender, nondistended. Bowel sounds are positive. MUSCULOSKELETAL: No cyanosis or clubbing. There is no pitting in the bilateral lower extremities. NEUROLOGIC: Grossly nonfocal. LABORATORY: INR 1.4. Basic metabolic profile is essentially unremarkable otherwise. ASSESSMENT: 1. Acute pulmonary embolism. 2. Deep venous thrombosis of the right upper extremity, recurrent. 3. Human immunodeficiency virus. 4. Obesity. DISCUSSION AND PLAN: At this point, the patient has no further requirements for inpatient Pulmonary or Critical Care opinion. She will require lifelong anticoagulation moving forward. I have stressed to her the importance of relaying to her healthcare providers that her HIV status is positive. I hdez ve also stressed the importance for her to continue anticoagulation for the rest of her life. She un derstands that not taking blood thinner, and withholding that kind of information could potentially b e life threatening. At this point, she has no further requirements for inpatient Pulmonary or Critic al Care opinion and I will sign off. Please call with additional questions or concerns amber faust
[2018-01-11] MEDS ORDERED: Enoxaparin Sodium 100 MG/ML SYRINGE SC SCH (21:00)
[2018-01-12 04:25] LABS: Hemoglobin 12.9 g/dL (12.0-16.0); INR-International Normal Ratio 1.6; Prothrombin Time 19.5 SEC (12.0-14.7)
[2018-01-12 04:35] LABS: Anion Gap 13 mmol/L (10-20); BUN (Urea Nitrogen) 11 mg/dL (7.0-18.7); Calc. Creatinine Clearance 97 mL/min (70-130); Calcium 9.2 mg/dL (7.8-10.44); Carbon Dioxide 22 mmol/L (22-29); Chloride 106 mmol/L (98-107); Estimated GFR-MDRD 69; Glucose 73 mg/dL (70-105); Potassium 4.2 mmol/L (3.5-5.1); Sodium 137 mmol/L (136-145)
[2018-01-12] MEDS: Enoxaparin Sodium 100 MG/ML SYRINGE SC SCH ×2 (09:13→20:37)
[2018-01-12] MEDS: Ferrous Sulfate 325 MG TAB PO SCH ×2 (09:14→17:45)
[2018-01-12] MEDS: traMADol HCl 50 MG TAB PO PRN (10:32)
--- NOTE | 2018-01-12 11:10 | CON ---
DATE OF CONSULTATION: 01/12/2018 REASON FOR CONSULTATION: Thromboembolism in the setting of human immunodeficiency virus infection. HISTORY OF PRESENT ILLNESS: A 42-year-old, known to me from multiple prior visits. Has been on anti retroviral therapy with erratic adherence to treatment until about a year ago when she started taking it in a more regular fashion with subsequent improvement of viremia control as well as improvement i n CD4 cell count and weight gain. The patient also has a history of venous thromboembolism with deep vein thrombosis in lower extremities, on chronic anticoagulation. In looking over her hypercoagulab ility profile, I do not see any abnormal test results. The patient did not refill her Coumadin a few days ago and developed recurrence of thrombosis, this time in the right upper extremity associated w ith pulmonary embolism. Currently, she is awake, alert. No headaches, visual symptoms, sore throat, odynophagia, or dysphagia. Swelling and pain in the right upper extremity associated with the VTE. No chest pain, no abdominal pain or diarrhea, no genitourinary symptoms. Chronic pain in lower extr emities and swelling associated with prior thrombosis and post-thrombotic syndrome. No diarrhea, no genitourinary symptoms. PAST MEDICAL HISTORY: Longstanding HIV infection, CD4 cell count in the mid 600 range, last checked a few months ago; viral load 32 with improvement in compliance with her antiretroviral therapy. SURGICAL HISTORY: Noncontributory. SOCIAL HISTORY: Never smoker. FAMILY HISTORY: Noncontributory. ALLERGIES: None. MEDICATIONS: Stribild, warfarin, gabapentin. PHYSICAL EXAMINATION: VITAL SIGNS: T-max 99, blood pressure 106/71, pulse 92, respirations 17, O2 sat 96%. SKIN EXAM: With no areas of skin breakdown, no lymphadenopathy. HEENT: Ocular movements conjugate. Oral cavity normal. NECK: Supple, no jugular venous distention. LUNGS: Symmetric, clear breath sounds. HEART: S1 and S2, regular rate. No S3, S4. ABDOMEN: Soft, not distended or tender. No ascites. No bladder distention. EXTREMITIES: The right upper extremity is swollen compared to the left with moderate tenderness in t he brachial area. A 1+ edema in lower extremities, symmetric. Pulses 1+ in dorsalis pedis. Moves e xtremities equally except for limitations in the right upper extremity related to the thrombosis. NEUROLOGIC: Cognitive function appears to be intact. LABORATORY DATA: White cell count 13 and now 11, platelets 191, hemoglobin 13, with 13% neutrophils, 80% lymphocytes on arrival, now 41 and 52. INR was 1.0 and now it is 1.6, on Coumadin. Creatinine was 1.22 on arrival, now 1.06; albumin 4.2; globulin is 3.9. Chest CT angiogram positive for right-s ided pulmonary thromboembolism. Vascular ultrasound, evidence of DVT, brachial vein and basilic vein . ASSESSMENT: 1. Longstanding human immunodeficiency virus infection with improvement in adherence to antiretrovir al therapy and now marked improvement in CD4 cell count, weight gain, and controlled viremia. Patien t to continue on Stribild as previously. 2. Venous thromboembolism with a short-term interruption of Coumadin with exacerbation. The patient to be restarted on Coumadin. She does her Coumadin Clinic control through one of the local clinics and we will continue doing so. It is not clear what the etiology of her hypercoagulable syndrome is.
--- NOTE | 2018-01-12 12:59 | PDOC.PN ---
- Subjective Encounter Start Date: 01/12/18 Encounter Start Time: 12:57 Subjective: discussed HIV status w pt.she takes HAART daily & follows w ID -: reports her disease is under control -: reports improvement in symptoms of R arm swelling pain.still LONG - Objective Resuscitation Status: Resuscitation Status FULL:Full Resuscitation MAR Reviewed: Yes Vital Signs & Weight: Vital Signs (12 hours) Temp Pulse Resp BP Pulse Ox 01/12/18 12:37 98.3 F 88 17 01/12/18 09:05 98.3 F 88 17 95 01/12/18 09:04 98.3 F 88 17 116/76 96 01/12/18 04:00 98.5 F 92 12 106/71 96 Weight Weight 192 lb I&O: 01/11/18 01/12/18 01/13/18 06:59 06:59 06:59 Intake Total 1400 480 Output Total 535 300 Balance 865 180 Result Diagrams: 01/12/18 03:07 01/12/18 03:07 Additional Labs: Laboratory Tests 01/09/18 01/10/18 01/11/18 16:52 04:27 04:46 INR 1.0 1.0 1.4 01/12/18 03:07 INR 1.6 labs reviewed Phys Exam - Physical Examination Constitutional: NAD HEENT: PERRLA, moist MMs, sclera anicteric, oral pharynx no lesions Neck: no nodes, no JVD, supple, full ROM Respiratory: no wheezing, no rales, no rhonchi, clear to auscultation bilateral Cardiovascular: RRR, no significant murmur, no rub Gastrointestinal: soft, non-tender, no distention, positive bowel sounds Musculoskeletal: no edema, pulses present Neurological: non-focal, normal sensation, moves all 4 limbs Psychiatric: normal affect, A&O x 3 Skin: no rash Dx/Plan (1) Pulmonary emboli Code(s): I26.99 - OTHER PULMONARY EMBOLISM WITHOUT ACUTE COR PULMONALE Status : Acute Qualifiers: Chronicity: acute (2) DVT of upper extremity (deep vein thrombosis) Code(s): I82.629 - ACUTE EMBOLISM AND THROMBOSIS OF DEEP VN UNSP UP EXTREM Status: Acute Qualifiers: Affected thrombotic vein of extremity: brachial Chronicity: acute Laterality: right Qualified Code(s): I82.621 - Acute embolism and thrombosis of deep veins of right upper extremity (3) ROSA MARIA (acute kidney injury) Code(s): N17.9 - ACUTE KIDNEY FAILURE, UNSPECIFIED Status: Resolved (4) Non-compliance Code(s): Z91.19 - PATIENT'S NONCOMPLIANCE W OTH MEDICAL TREATMENT AND REGIMEN Status: Acute (5) Anemia, normocytic normochromic Code(s): D64.9 - ANEMIA, UNSPECIFIED Status: Chronic (6) HIV positive Code(s): Z21 - ASYMPTOMATIC HUMAN IMMUNODEFICIENCY VIRUS INFECTION STATUS Status: Chronic Comment: on HAART w Stribild daily - Plan PT/OT, respiratory therapy, incentive spirometry, out of bed/ambulate, DVT proph w/SCDs cont lovenox w Coumadin daily untill INR therapeutic -: Hemodynamically stable. cont to monitor -: cont HIV meds .pt takes her own -: Ok to transfer to medical -: am labs * . Review of Systems - Review of Systems Constitutional: negative: fever, chills, sweats, weakness, malaise, other Eyes: negative: Pain, Vision Change, Conjunctivae Inflammation, Eyelid Inflammation, Redness, Other Respiratory: SOB with Excertion. negative: Cough, Dry, Shortness of Breath, Hemoptysis, Pleuritic Pain, Sputum, Wheezing Cardiovascular: negative: chest pain, palpitations, orthopnea, paroxysmal nocturnal dyspnea, edema, light headedness, other Gastrointestinal: negative: Nausea, Vomiting, Abdominal Pain, Diarrhea, Constipation, Melena, Hematochezia, Other Genitourinary: negative: Dysuria, Frequency, Incontinence, Hematuria, Retention , Other Musculoskeletal: negative: Neck Pain, Shoulder Pain, Arm Pain, Back Pain, Hand Pain, Leg Pain, Foot Pain, Other Skin: negative: Rash, Lesions, Joshua, Bruising, Other Neurological: negative: Weakness, Numbness, Incoordination, Change in Speech, Confusion, Seizures, Other - Medications/Allergies Allergies/Adverse Reactions: Allergies Allergy/AdvReac Type Severity Reaction Status Date / Time No Known Drug Allergies Allergy Verified 01/09/18 21:08 Medications: Current Medications Acetaminophen (Tylenol) 650 mg PO Q4H PRN PRN Reason: Headache/Fever or Pain Last Admin: 01/10/18 06:15 Dose: 650 mg Al Hydroxide/Mg Hydroxide (Maalox) 15 ml PO Q4H PRN PRN Reason: Heartburn or Indigestion Benzonatate (Tessalon) 100 mg PO Q4H PRN PRN Reason: Cough Bisacodyl (Dulcolax) 10 mg PO DAILYPRN PRN PRN Reason: Constipation Calcium Carbonate (Tums) 1,000 mg PO Q4H PRN PRN Reason: Heartburn or Indigestion Clonidine (Catapres) 0.1 mg PO Q4H PRN PRN Reason: SBP>160 Enoxaparin Sodium (Lovenox) 90 mg SC 0900,2100 [facility] Last Admin: 01/12/18 09:13 Dose: 90 mg Ferrous Sulfate (Feosol) 325 mg PO BID-F [facility] Last Admin: 01/12/18 09:14 Dose: 325 mg Guaifenesin (Robitussin Sf) 200 mg PO Q4H PRN PRN Reason: Cough Hydralazine HCl (Apresoline) 10 mg SLOW IVP Q4H PRN PRN Reason: Systolic BP > 180 Loratadine (Claritin) 10 mg PO DAILYPRN PRN PRN Reason: Sinus Symptoms Lorazepam (Ativan) 1 mg PO Q4H PRN PRN Reason: Anxiety/Agitation Miscellaneous Medication (Pharmacy To Dose) 1 each PO PRN PRN PRN Reason: PE Nitroglycerin (Nitrostat) 0.4 mg SL Q5MIN PRN PRN Reason: Chest Pain Ondansetron HCl (Zofran) 4 mg IVP Q6H PRN PRN Reason: Nausea/Vomiting Pantoprazole Sodium (Protonix) 40 mg PO DAILY [facility] Last Admin: 01/12/18 09:14 Dose: 40 mg Senna (Senokot) 2 tab PO HSPRN PRN PRN Reason: Constipation Last Admin: 01/10/18 21:00 Dose: 2 tab Sodium Chloride (Flush - Normal Saline) 10 ml IVF Q12HR [facility] Last Admin: 01/12/18 09:14 Dose: 10 ml Sodium Chloride (Flush - Normal Saline) 10 ml IVF PRN PRN PRN Reason: Saline Flush Tramadol HCl (Ultram) 50 mg PO Q4H PRN PRN Reason: Moderate Pain (4-6) Last Admin: 01/12/18 10:32 Dose: 50 mg Warfarin Sodium (Coumadin) 7.5 mg PO 1700 [facility] Last Admin: 01/11/18 16:50 Dose: 7.5 mg
[2018-01-12] MEDS: Warfarin Sodium 7.5 MG TAB PO SCH (17:45)
[2018-01-13] MEDS: traMADol HCl 50 MG TAB PO PRN ×3 (00:44→21:19)
[2018-01-13 05:30] LABS: INR-International Normal Ratio 2.4; Prothrombin Time 27.1 SEC (12.0-14.7)
[2018-01-13 05:33] LABS: Hemoglobin 12.5 g/dL (12.0-16.0)
[2018-01-13] MEDS: Ferrous Sulfate 325 MG TAB PO SCH ×2 (08:08→16:42)
--- NOTE | 2018-01-13 16:09 | PDOC.PN ---
- Subjective Encounter Start Date: 01/13/18 Encounter Start Time: 16:07 Subjective: feels much better.still c/o LONG -: r arm poain and swelling improving - Objective Resuscitation Status: Resuscitation Status FULL:Full Resuscitation MAR Reviewed: Yes Vital Signs & Weight: Vital Signs (12 hours) Temp Pulse Resp BP Pulse Ox 01/13/18 12:23 98.4 F 67 99 H 111/77 95 01/13/18 08:59 98.0 F 71 18 114/68 98 01/13/18 08:09 98.5 F 84 16 96/89 97 01/13/18 08:00 98.0 F 71 18 01/13/18 05:23 98.4 F 97 18 92/61 97 Weight Weight 192 lb I&O: 01/12/18 01/13/18 01/14/18 06:59 06:59 06:59 Intake Total 480 370 Output Total 300 300 Balance 180 70 Result Diagrams: 01/13/18 03:41 01/12/18 03:07 Additional Labs: labs reviewed Phys Exam - Physical Examination Constitutional: NAD HEENT: PERRLA, moist MMs, sclera anicteric, oral pharynx no lesions Neck: no nodes, no JVD, supple, full ROM Respiratory: no wheezing, no rales, no rhonchi, clear to auscultation bilateral Cardiovascular: RRR, no significant murmur Gastrointestinal: soft, non-tender, no distention, positive bowel sounds Musculoskeletal: no edema, pulses present Neurological: non-focal, normal sensation, moves all 4 limbs Psychiatric: normal affect, A&O x 3 Skin: no rash Dx/Plan (1) Pulmonary emboli Code(s): I26.99 - OTHER PULMONARY EMBOLISM WITHOUT ACUTE COR PULMONALE Status : Acute Qualifiers: Chronicity: acute (2) DVT of upper extremity (deep vein thrombosis) Code(s): I82.629 - ACUTE EMBOLISM AND THROMBOSIS OF DEEP VN UNSP UP EXTREM Status: Acute Qualifiers: Affected thrombotic vein of extremity: brachial Chronicity: acute Laterality: right Qualified Code(s): I82.621 - Acute embolism and thrombosis of deep veins of right upper extremity (3) ROSA MARIA (acute kidney injury) Code(s): N17.9 - ACUTE KIDNEY FAILURE, UNSPECIFIED Status: Resolved (4) Non-compliance Code(s): Z91.19 - PATIENT'S NONCOMPLIANCE W OTH MEDICAL TREATMENT AND REGIMEN Status: Acute (5) Anemia, normocytic normochromic Code(s): D64.9 - ANEMIA, UNSPECIFIED Status: Chronic (6) HIV positive Code(s): Z21 - ASYMPTOMATIC HUMAN IMMUNODEFICIENCY VIRUS INFECTION STATUS Status: Chronic Comment: on HAART w Stribild daily - Plan out of bed/ambulate, DVT proph w/SCDs INR therapeutic today.DC lovenox 7 cont Coumadin at high dose w daily INR -: given H/O HIV and PE, will check ECHO. -: cont HIV meds as below -: hemodynamically stable. -: am labs.monitor H/H * . Review of Systems - Review of Systems Constitutional: negative: fever, chills, sweats, weakness, malaise, other Eyes: negative: Pain, Vision Change, Conjunctivae Inflammation, Eyelid Inflammation, Redness, Other Respiratory: SOB with Excertion. negative: Cough, Dry, Shortness of Breath, Hemoptysis, Pleuritic Pain, Sputum, Wheezing Cardiovascular: negative: chest pain, palpitations, orthopnea, paroxysmal nocturnal dyspnea, edema, light headedness, other Gastrointestinal: negative: Nausea, Vomiting, Abdominal Pain, Diarrhea, Constipation, Melena, Hematochezia, Other Genitourinary: negative: Dysuria, Frequency, Incontinence, Hematuria, Retention , Other Musculoskeletal: negative: Neck Pain, Shoulder Pain, Arm Pain, Back Pain, Hand Pain, Leg Pain, Foot Pain, Other Skin: negative: Rash, Lesions, Joshua, Bruising, Other Neurological: negative: Weakness, Numbness, Incoordination, Change in Speech, Confusion, Seizures, Other - Medications/Allergies Allergies/Adverse Reactions: Allergies Allergy/AdvReac Type Severity Reaction Status Date / Time No Known Drug Allergies Allergy Verified 01/09/18 21:08 Medications: Current Medications Acetaminophen (Tylenol) 650 mg PO Q4H PRN PRN Reason: Headache/Fever or Pain Last Admin: 01/10/18 06:15 Dose: 650 mg Al Hydroxide/Mg Hydroxide (Maalox) 15 ml PO Q4H PRN PRN Reason: Heartburn or Indigestion Benzonatate (Tessalon) 100 mg PO Q4H PRN PRN Reason: Cough Bisacodyl (Dulcolax) 10 mg PO DAILYPRN PRN PRN Reason: Constipation Calcium Carbonate (Tums) 1,000 mg PO Q4H PRN PRN Reason: Heartburn or Indigestion Clonidine (Catapres) 0.1 mg PO Q4H PRN PRN Reason: SBP>160 Ferrous Sulfate (Feosol) 325 mg PO BID-[facility] Last Admin: 01/13/18 08:08 Dose: 325 mg Guaifenesin (Robitussin Sf) 200 mg PO Q4H PRN PRN Reason: Cough Hydralazine HCl (Apresoline) 10 mg SLOW IVP Q4H PRN PRN Reason: Systolic BP > 180 Loratadine (Claritin) 10 mg PO DAILYPRN PRN PRN Reason: Sinus Symptoms Lorazepam (Ativan) 1 mg PO Q4H PRN PRN Reason: Anxiety/Agitation Miscellaneous Medication (Pharmacy To Dose) 1 each PO PRN PRN PRN Reason: PE Nitroglycerin (Nitrostat) 0.4 mg SL Q5MIN PRN PRN Reason: Chest Pain Ondansetron HCl (Zofran) 4 mg IVP Q6H PRN PRN Reason: Nausea/Vomiting Pantoprazole Sodium (Protonix) 40 mg PO DAILY [facility] Last Admin: 01/13/18 08:08 Dose: 40 mg Stribild Tab 0 each PO QAM-[facility] Senna (Senokot) 2 tab PO HSPRN PRN PRN Reason: Constipation Last Admin: 01/10/18 21:00 Dose: 2 tab Sodium Chloride (Flush - Normal Saline) 10 ml IVF Q12HR [facility] Last Admin: 01/13/18 08:13 Dose: 10 ml Sodium Chloride (Flush - Normal Saline) 10 ml IVF PRN PRN PRN Reason: Saline Flush Tramadol HCl (Ultram) 50 mg PO Q4H PRN PRN Reason: Moderate Pain (4-6) Last Admin: 01/13/18 08:09 Dose: 50 mg Warfarin Sodium (Coumadin) 7.5 mg PO 1700 [facility] Last Admin: 01/12/18 17:45 Dose: 7.5 mg
[2018-01-13 16:17] LABS: %CD4 (Helper/Inducer) 24.2 % (30.8-58.5); Absolute CD4 1791 /uL (359-1519); Lymphocytes/Gated Cell Count 7.4 x10E3/uL (0.7-3.1); Total Lymphocyte 64 % (Not Estab.); WBC Total Count 11.5 x10E3/uL (3.4-10.8)
[2018-01-13] MEDS: Warfarin Sodium 7.5 MG TAB PO SCH (16:43)
[2018-01-14 05:22] LABS: INR-International Normal Ratio 2.2; Prothrombin Time 25.5 SEC (12.0-14.7)
[2018-01-14 05:33] LABS: Hemoglobin 12.7 g/dL (12.0-16.0)
[2018-01-14] MEDS ORDERED: STRIBILD PO SCH (08:00)
[2018-01-14] MEDS: Ferrous Sulfate 325 MG TAB PO SCH (08:41)
[2018-01-14 12:38] LABS: ANA Symphony (Qualitative) Negative (Negative); dsDNA IgG Antibody 1.3 IU/mL (<10 Negative)
--- NOTE | 2018-01-14 13:01 | PDOC.PN ---
- Subjective Encounter Start Date: 01/14/18 Encounter Start Time: 09:45 Subjective: no sob, feels good - Objective Resuscitation Status: Resuscitation Status FULL:Full Resuscitation MAR Reviewed: Yes Vital Signs & Weight: Vital Signs (12 hours) Temp Pulse Resp BP Pulse Ox 01/14/18 08:00 98.7 F 121 H 16 98 01/14/18 07:26 98.7 F 121 H 16 106/75 98 Weight Weight 192 lb I&O: 01/13/18 01/14/18 01/15/18 06:59 06:59 06:59 Intake Total 370 210 Output Total 300 Balance 70 210 Result Diagrams: 01/14/18 04:41 01/12/18 03:07 Phys Exam - Physical Examination HEENT: PERRLA, moist MMs Neck: no JVD, supple Respiratory: no wheezing, no rales Cardiovascular: RRR, no significant murmur Gastrointestinal: soft, non-tender, positive bowel sounds Musculoskeletal: no edema, pulses present Neurological: non-focal, moves all 4 limbs Psychiatric: normal affect, A&O x 3 Dx/Plan (1) Pulmonary emboli Code(s): I26.99 - OTHER PULMONARY EMBOLISM WITHOUT ACUTE COR PULMONALE Status : Acute Qualifiers: Chronicity: acute (2) DVT of upper extremity (deep vein thrombosis) Code(s): I82.629 - ACUTE EMBOLISM AND THROMBOSIS OF DEEP VN UNSP UP EXTREM Status: Acute Qualifiers: Affected thrombotic vein of extremity: brachial Chronicity: acute Laterality: right Qualified Code(s): I82.621 - Acute embolism and thrombosis of deep veins of right upper extremity (3) HIV positive Code(s): Z21 - ASYMPTOMATIC HUMAN IMMUNODEFICIENCY VIRUS INFECTION STATUS Status: Chronic Comment: on Stribild daily, CD4 is 1791 on 01/14/18 (4) Obesity (BMI 30-39.9) Code(s): E66.9 - OBESITY, UNSPECIFIED Status: Chronic - Plan inr is 2.2, continue coumadin 7.5mg -: inr check on [facility] -: dc pt home -: to f/u with in 4 weeks and PCP In 1 week * .
[2018-01-14 13:56] VITALS: BP 113/79; TEMP 98.4
[2018-01-15 00:10] LABS: LOG10 HIV-1 RNA 1.301 (.)
--- NOTE | 2018-01-15 11:08 | DIS ---
DATE OF ADMISSION: 01/09/2018 DATE OF DISCHARGE: 01/14/2018 DISCHARGE DISPOSITION: To home. PRIMARY DISCHARGE DIAGNOSES: Pulmonary embolism, right upper extremity deep venous thrombosis. SECONDARY DISCHARGE DIAGNOSES: Human immunodeficiency virus, obesity. PROCEDURES DONE DURING HOSPITALIZATION: CT angio of chest done was positive for PE on the right side. Ultrasound of right upper extremity was positive for DVT in the brachial vein. There was also thrombus within the basilic vein as well. Discharge INR is 2.2 with PT of 25. Discharge H&H 12 and 39 with platelet count of 191. Serum test was negative. LEON screen was negative. CD4 count was 1791. DISCHARGE MEDICATIONS: Ferrous sulfate 325 mg p.o. daily, Coumadin 7.5 mg p.o. daily, gabapentin 300 mg p.o. 3 times daily, Stribild 1 tab daily. ALLERGIES: No known drug allergies. INPATIENT CONSULTS: Dr. Mccollum for Pulmonology, Dr. Gould for Infectious Disease. DISCHARGE PLAN: The patient to check her INR on Friday at [facility]. She also needs to follow up with Dr. Gould as advised and Dr. Mccollum as advised. BRIEF COURSE DURING HOSPITALIZATION: The patient initially came to ER with complaints of redness, tenderness and swelling of right upper extremity with pain. Ultrasound venous Doppler of right upper extremity done was positive for DVT. She also had a CT angio chest done which was positive for PE. The patient was on anticoagulation and transitioned over to Coumadin. Her INR is 2.2 this morning. The patient is to have a repeat INR check done on Friday at [facility]. She is otherwise hemodynamically stable and ambulating and eating well. The patient also needs to follow up with Dr. Gould in 4-6 weeks. Please see a [id number] documentation on Super Vitamin D for the day of discharge. [facility]
== END 2018-01-14 13:16 | disposition home or self-care (01) | DRG 299 ==
LOC: ERS 15:44 → 2NO 19:10 → T4-A 01-12 11:43
PROVIDERS: ADMIT Family Medicine; ATTEND Family Medicine
DX: I82.622 Acute embolism and thrombosis of deep veins of left upper extremity (principal); I26.99 Other pulmonary embolism without acute cor pulmonale; N17.9 Acute kidney failure, unspecified; Z21 Asymptomatic human immunodeficiency virus [HIV] infection status; E66.9 Obesity, unspecified; Z68.35 Body mass index [BMI] 35.0-35.9, adult; Z91.19 Patient's noncompliance with other medical treatment and regimen; D64.9 Anemia, unspecified
CPT/HCPCS: 36415; 71275; 80048; 80053; 81241; 84703; 85014; 85018; 85025; 85048; 85379; 85610; 85730; 86038; 86225; 86361; 87536; 96372; A4216; J1650

== ENCOUNTER 2018-04-22 18:35 | Emergency (ER) | payer SELFPAY ==
[2018-04-22 19:39] LABS: Hemoglobin 12.8 g/dL (12.0-16.0); Mean Corpuscular HGB CONC 32.3 g/dL (32.0-36.0); Mean Corpuscular Hemoglobin 32.5 pg (27.0-31.0); Mean Platelet Volume 9.1 fL (7.4-10.4); Platelet Count 241 thou/uL (130-400); RBC Distribution Width 13.9 % (11.5-14.5); Red Blood Cell (RBC) Count 3.94 mill/uL (4.20-5.40); White Blood Cell (WBC) Count 11.6 thou/uL (4.8-10.8)
[2018-04-22 19:44] LABS: INR-International Normal Ratio 1.1; Prothrombin Time 13.9 SEC (12.0-14.7)
[2018-04-22 19:58] LABS: ALT (SGPT) 12 U/L (8-55); AST (SGOT) 15 U/L (5-34); Albumin 4.2 g/dL (3.5-5.0); Alkaline Phosphatase 68 U/L (40-150); Anion Gap 15 mmol/L (10-20); BUN (Urea Nitrogen) 8 mg/dL (7.0-18.7); Bilirubin, Total 0.9 mg/dL (0.2-1.2); CK (CPK) 85 U/L (29-168); Calc. Creatinine Clearance 0 mL/min (70-130); Calcium 9.7 mg/dL (7.8-10.44); Carbon Dioxide 22 mmol/L (22-29); Chloride 105 mmol/L (98-107); Estimated GFR-MDRD 63; Globulin 3.6 g/dL (2.4-3.5); Glucose 97 mg/dL (70-105); Lipase 37 U/L (8-78); Potassium 3.9 mmol/L (3.5-5.1); Protein, Total 7.8 g/dL (6.0-8.3); Sodium 138 mmol/L (136-145)
[2018-04-22 20:00] LABS: Eosinophils 1 % (0-10); Lymphocytes 61 % (21-51); MDiff Complete? YES; Neutrophil 29 % (42-75); PLT Morphology Comment Appears Adequate; RBC Morphology Normal; Reactive Lymphocytes 8 % (0-10)
[2018-04-22 20:10] LABS: CKMB 0.4 ng/mL (0-6.6); Troponin I Less than 0.010 ng/mL (< 0.028)
--- NOTE | 2018-04-22 21:18 | ULT ---
ULTRASOUND WITH DOPPLER DUPLEX VENOUS LOWER EXTREMITY BILATERAL 04/22/18 CPT: 03092 ICD-10-PCS: B54D HISTORY: History of prior DVT with edema and pain of the lower extremities. TECHNIQUE: Color flow Doppler, spectral waveform analysis of pulsed Doppler, and hernandez-scale imaging with fausto jonathan and augmentation, were used to evaluate the bilateral common femoral, femoral, popliteal, cycle repairer ior tibial, and superficial femoral, veins; and the proximal portions of the profunda femoral and gre ater saphenous, veins. FINDINGS: Appropriate compressibility and flow within the imaged deep vein system of each lower extremity witho ut evidence of DVT. IMPRESSION: No DVT identified within the visualized, bilateral lower extremities. POS: [facility]
[2018-04-22 21:29] LABS: Bilirubin Negative (Negative); Blood, Urine Large (Negative); Clarity CLEAR (Clear); Glucose, Urine (Dipstick) Negative (Negative); Leukocyte Negative (Negative); Nitrite Negative (Negative); Protein, Urine (Dipstick) Trace mg/dL (Neg-Trace); Specific Gravity, Urine 1.013 (1.002-1.036)
[2018-04-22 21:30] LABS: Bacteria/HPF None Seen HPF (None Seen); Hyaline Casts/LPF 0-3 HYALINE CAST LPF (0-3 Hyaline); Pathc Cast-AUWi Flag 0.14 (0-2.49); RBC/HPF GREATER THAN 50-TNTC HPF (0-3); Squamous Epithelial 0-3 HPF (0-3); WBC/HPF 0-3 HPF (0-3)
--- NOTE | 2018-04-22 21:39 | CT ---
CTA CHEST WITH CONTRAST AND 3D VOLUME RENDERING 04/22/18 COMPARISON: 01/09/18 INDICATION: Dyspnea. 43-year-old female with shortness of breath and cough. FINDINGS: There is no evidence of a significant filling defect in the pulmonary arteries. The thoracic aorta is normal in caliber. There is mild atelectasis of each lung. No effusion, or pneumothorax. Partially i yamilex mild skin thickening is seen at the ventral left chest, laterally. Correlate with physical exam . There is mild prominence of bilateral axillary lymph nodes, nonspecific. IMPRESSION: No acute pulmonary embolus. POS: [facility]
[2018-04-22] MEDS ORDERED: Enoxaparin Sodium 80 MG/0.8 ML SYRINGE ONE (22:08)
== END 2018-04-22 22:14 | disposition home or self-care (01) ==
LOC: ERS 18:35
DX: R07.89 Other chest pain (principal); R05 Cough; R79.1 Abnormal coagulation profile; I50.9 Heart failure, unspecified; Z21 Asymptomatic human immunodeficiency virus [HIV] infection status; Z86.711 Personal history of pulmonary embolism
CPT/HCPCS: 36415; 71275; 80053; 81003; 81015; 82553; 83690; 83880; 84484; 85025; 85610; 85730; 93005; 93970; 96372; J1650

== ENCOUNTER 2019-08-10 06:55 | Emergency (ER) | payer MEDICARE, SELFPAY ==
[2019-08-10] MEDS ORDERED: diphenhydrAMINE 50 MG/ML VIAL ONE (07:18)
[2019-08-10] MEDS ORDERED: Metoclopramide HCl 10 MG/2 ML VIAL ONE (07:18)
[2019-08-10] MEDS ORDERED: Acetaminophen 500 MG TAB ONE (07:18)
[2019-08-10 07:33] LABS: Hemoglobin 11.2 g/dL (12.0-16.0); Mean Corpuscular HGB CONC 31.5 g/dL (32.0-36.0); Mean Corpuscular Hemoglobin 29.5 pg (27.0-31.0); Mean Corpuscular Volume 93.6 fL (78.0-98.0); Mean Platelet Volume 8.5 fL (7.4-10.4); Platelet Count 326 thou/uL (130-400); RBC Distribution Width 14.4 % (11.5-14.5); Red Blood Cell (RBC) Count 3.78 mill/uL (4.20-5.40); White Blood Cell (WBC) Count 10.7 thou/uL (4.8-10.8)
[2019-08-10 07:39] LABS: Prothrombin Time 13.1 SEC (12.0-14.7)
[2019-08-10 07:40] LABS: PTT 28.9 SEC (22.9-36.1)
[2019-08-10 07:48] LABS: ALT (SGPT) 14 U/L (8-55); AST (SGOT) 19 U/L (5-34); Alkaline Phosphatase 55 U/L (40-110); Anion Gap 10 mmol/L (10-20); BUN (Urea Nitrogen) 13 mg/dL (7.0-18.7); Bilirubin, Total 0.5 mg/dL (0.2-1.2); Calc. Creatinine Clearance 0 mL/min (70-130); Calcium 8.6 mg/dL (7.8-10.44); Carbon Dioxide 25 mmol/L (22-29); Chloride 109 mmol/L (98-107); Estimated GFR-MDRD 75; Globulin 3.2 g/dL (2.4-3.5); Glucose 88 mg/dL (70-105); Potassium 3.6 mmol/L (3.5-5.1); Protein, Total 7.2 g/dL (6.0-8.3); Sodium 140 mmol/L (136-145)
--- NOTE | 2019-08-10 07:54 | CT ---
CT of thehead with and without contrast: 08/10/2019 COMPARISON:01/04/2017 HISTORY:Headache with neck stiffness and blurry vision TECHNIQUE: Serial axial CT imaging at5 mm from thevertex through skull base with and without IV contr ast. Findings:The imaged paranasal sinuses and mastoid air cells appear well-aerated. No displaced calvari al fracture. No intracranial hemorrhage, midline shift, or mass effect. This study was not tailored to evaluate the intracranial arterial structures. The postcontrast imagin g demonstrates no abnormal enhancement within the brain parenchyma Impression:No acute findings.
[2019-08-10 08:02] LABS: Eosinophils 2 % (0-10); Lymphocytes 67 % (21-51); MDiff Complete? YES; Monocytes 3 % (0-10); Neutrophil 27 % (42-75); Ovalocytes SLIGHT = 2-5 cells (100X) (0-1/hpf); Platelet Morphology Comment Appears Adequate; Polychromasia SLIGHT = 2-3 cells (100X) (0-2/hpf); Reactive Lymphocytes 1 % (0-10)
[2019-08-10] MEDS ORDERED: Magnesium 2 GM/50 ML BAG (IN WATER) ONE (09:48)
[2019-08-10] MEDS ORDERED: Ketorolac Tromethamine 30 MG/ML VIAL ONE (09:48)
[2019-08-10] MEDS ORDERED: Iopamidol-370 76% 500 ML 1 ML ONE (15:11)
== END 2019-08-10 11:01 | disposition home or self-care (01) ==
LOC: ERS 06:55
DX: R51 Headache (principal); I50.9 Heart failure, unspecified; Z79.899 Other long term (current) drug therapy; Z86.718 Personal history of other venous thrombosis and embolism
CPT/HCPCS: 70470; 80053; 85025; 85610; 85730; 96365; 96367; 96375; J1200; J1885; J2765; J3475; Q9967

== ENCOUNTER 2020-03-16 14:55 | Outpatient (CLI) | payer MEDICARE, MEDICAID ==
--- NOTE | 2020-03-16 16:37 | RAD ---
TWO VIEW CHEST: 03/16/20 HISTORY: Dyspnea. COMPARISON: Comparison made to a portable film from 2017. There is mild linear stranding in the left lower lung peripherally. Linear stranding was present at t his location on the prior portable exam. The lungs otherwise are clear and unremarkable. Vascular mar kings appear normal. Heart and mediastinum unremarkable. Osseous structures unremarkable. IMPRESSION: No acute finding. POS: [facility]
== END 2020-03-16 14:56 | disposition home or self-care (01) ==
LOC: ULT 14:55
PROVIDERS: ATTEND Internal Medicine Infectious Disease
DX: R06.00 Dyspnea, unspecified (principal); I08.1 Rheumatic disorders of both mitral and tricuspid valves
CPT/HCPCS: 71046; 93306